=== PATIENT | female | born 1940 | race Caucasian/White ===

== ENCOUNTER 2018-12-16 09:13 | Inpatient (IN) ==
[2018-12-16 10:36] LABS: BASO# 0.02 X1000 (0.0-0.2); BASO% 0.3 % (0.0-0.8); EOS# 0.02 X1000 (0.0-0.7); EOS% 0.3 % (0.0-10.0); HEMOGLOBIN 11.1 g/dL (12.0-16.0); LYMPH# 0.66 X1000 (1.2-3.4); LYMPH% 8.4 % (20.5-51.1); MCV 93.4 FL (81-99); MONO# 0.66 X1000 (0.11-0.59); MONO% 8.4 % (1.7-9.3); MPV 9.3 FL (7.4-10.4); NEUT# 6.53 X1000 (1.4-6.5); NEUT% 82.6 % (42.2-75.2); PLT 172 X1000 (130-400); RBC 3.96 XMIL (4.2-5.4); RDW 18.7 % (11.5-14.5); WBC 7.89 X1000 (4.8-10.8)
[2018-12-16 11:00] LABS: ALB/GLOB RATIO 1.5; ALBUMIN 3.7 g/dL (3.5-5.0); CALCIUM 9.4 mg/dL (8.8-10.2); POTASSIUM 3.7 mmol/L (3.5-5.1); TOTAL BILIRUBIN 0.71 mg/dL (0.20-1.00); TOTAL PROTEIN 6.2 g/dL (6.3-8.3)
[2018-12-16 12:21] LABS: INR 1.12; PROTIME 14.6 Seconds (11.0-16.0); PTT 29.5 Seconds (22.3-41.8)
[2018-12-16] MEDS ORDERED: LASIX IV ONE (14:37)
[2018-12-16] MEDS ORDERED: ZOFRAN PO PRN (15:35)
[2018-12-16] MEDS ORDERED: CUBICIN IV SCH (15:35)
[2018-12-16] MEDS ORDERED: PHENERGAN PO PRN (15:35)
[2018-12-16] MEDS ORDERED: CUBICIN 500 MG in NS 100 ML IV SCH (17:00)
[2018-12-16] MEDS ORDERED: LASIX IV SCH (21:00)
[2018-12-16] MEDS ORDERED: MS CONTIN PO SCH (21:00)
[2018-12-16] MEDS: KLOR-CON PO SCH (21:04)
[2018-12-16] MEDS: MS CONTIN PO SCH (21:04)
[2018-12-16] MEDS: NEURONTIN PO SCH (21:05)
[2018-12-17 05:46] LABS: HEMATOCRIT 39.8 % (37.0-47.0); HEMOGLOBIN 12.4 g/dL (12.0-16.0); MCH 28.8 PG (27-31); MCHC 31.2 g/dL (33-37); MCV 92.3 FL (81-99); MPV 9.2 FL (7.4-10.4); RBC 4.31 XMIL (4.2-5.4); RDW 18.5 % (11.5-14.5); WBC 6.77 X1000 (4.8-10.8)
[2018-12-17 06:32] LABS: CALCIUM 9.5 mg/dL (8.8-10.2); CREATININE 1.1 mg/dL (0.5-0.9); POTASSIUM 3.8 mmol/L (3.5-5.1)
[2018-12-17 07:55] VITALS: BP 138/59
[2018-12-17] MEDS ORDERED: SYNTHROID PO SCH (09:00)
[2018-12-17] MEDS ORDERED: VALTREX PO SCH (09:00)
[2018-12-17] MEDS ORDERED: MOBIC PO SCH (09:00)
[2018-12-17] MEDS ORDERED: DURAGESIC 100 MICROGM/HR PATCH TD SCH (09:00)
[2018-12-17] MEDS ORDERED: NORVASC PO SCH (09:00)
[2018-12-17] MEDS ORDERED: LASIX IV SCH (09:00)
[2018-12-17] MEDS: KLOR-CON PO SCH (09:03)
[2018-12-17] MEDS: MS CONTIN PO SCH (09:03)
[2018-12-17] MEDS: NEURONTIN PO SCH (09:04)
[2018-12-17] MEDS ORDERED: TYLENOL PO PRN (09:21)
[2018-12-18] MEDS ORDERED: LASIX PO SCH (09:00)
== END 2018-12-17 13:02 | disposition home or self-care (01) ==
LOC: ED 09:13 → EDIPHOLD 14:58 → 1N 16:50
PROVIDERS: ATTEND Internal Medicine